=== PATIENT | male | born 1935 | race Caucasian/White ===

== ENCOUNTER 2017-01-18 09:50 | Outpatient (CLI) | payer OTHER ==
--- NOTE | 2017-01-18 12:12 | DIAGNOSTIC IMAGING REPORT ---
PROCEDURE: US ABDOMEN ULTRASOUND-COMPLETE INDICATION: ABN LFT TECHNIQUE: Magana scale and color Doppler sonographic images of the abdomen were obtained. COMPARISON: Abdominal ultrasound 11/06/2006. FINDINGS: Liver measures 18.2 cm with increased echogenicity. There is focal sparing adjacent to the gallbladder. Normal gallbladder and CBD, 3.9 mm. Negative Watts's sign. Spleen measures 14.4 x 5 cm with several calcified granulomas. Pancreas is unremarkable. Aorta and IVC are patent. Normal hepatopetal flow. Normal kidneys. Right kidney measures 10.7 cm and left kidney 10.9 cm. IMPRESSION: 1. Hepatic steatosis with focal sparing adjacent to the gallbladder 2. Borderline splenomegaly with calcified granulomas
== END 2017-01-18 23:00 ==
LOC: US SRH 09:50
DX: R94.5 Abnormal results of liver function studies (principal); K76.0 Fatty (change of) liver, not elsewhere classified; R16.1 Splenomegaly, not elsewhere classified